=== PATIENT | male | born 1965 | race Caucasian/White ===

== ENCOUNTER 2020-10-15 10:19 | Emergency (ER) | payer SELFPAY ==
[~2020-10-15] VITALS: Ht 182.9 cm; Wt 99.8 kg
[2020-10-15] MEDS ORDERED: Norco 5-325 Ta1 EACH PO (11:37)
== END 2020-10-15 11:45 | disposition home or self-care (01) ==
LOC: ER 10:19
DX: M25.552 Pain in left hip (principal)
CPT/HCPCS: 73502; 99283-25

== ENCOUNTER 2020-11-01 05:53 | Emergency (ER) | payer SELFPAY ==
[~2020-11-01] VITALS: Ht 182.9 cm; Wt 99.8 kg
[~2020-11-01 05:53] MED LIST: Norco 5-325 Ta1 EACH PO
[2020-11-01] MEDS ORDERED: Norco 5-325 Ta1 EACH PO (07:52)
== END 2020-11-01 08:14 | disposition home or self-care (01) ==
LOC: ER 05:53
DX: M25.461 Effusion, right knee (principal)
CPT/HCPCS: 73562-RT; 99283-25

== ENCOUNTER → 2021-02-15 | Outpatient (CLI) | payer SELFPAY ==
[2021-02-15 13:24] LABS: BASOPHILS ABSOLUTE AUTO 0.06 K/mm3 (0.00-0.23); BASOPHILS PERCENT AUTO 1 % (0-2); EOSINOPHILS ABSOLUTE AUTO 0.55 K/mm3 (0.00-0.68); EOSINOPHILS PERCENT AUTO 9 % (0-6); Hematocrit 42.3 % (37.0-53.0); IMMATURE GRAN ABSOLUTE AUTO 0.01 K/mm3 (0.00-0.10); IMMATURE GRAN PERCENT AUTO 0 % (0-1); LYMPHOCYTES ABSOLUTE AUTO 1.79 K/mm3 (0.84-5.20); LYMPHOCYTES PERCENT AUTO 30 % (21-46); MONOCYTES PERCENT AUTO 7 % (4-13); Mean Corpuscular HGB 30.3 pg (26.0-34.0); Mean Corpuscular HGB Conc 33.1 g/dL (31.5-36.5); Mean Corpuscular Volume 92 fL (80-100); Mean Platelet Volume 9.1 fL (9.1-12.4); NEUTROPHILS ABSOLUTE AUTO 3.07 K/mm3 (1.96-9.15); NEUTROPHILS PERCENT AUTO 52 % (41-73); Platelet Count 263 K/mm3 (150-400); RDW Coefficient Variation 13.9 % (11.7-14.2); RDW Standard Deviation 46.6 fL (35.1-46.3); Red Blood Cell Count 4.62 M/mm3 (4.30-5.90); White Blood Cell Count 5.88 K/mm3 (4.00-11.30)
[2021-02-15 13:40] LABS: Alanine Aminotransfer (ALT/SGP 65 U/L (12-78); Albumin, Blood 3.4 g/dL (3.4-5.0); Alk Phos 123 U/L (50-136); Anion Gap 5 mmol/L (6-16); Aspartate Aminotrans (AST/SGOT 137 U/L (12-37); Bilirubin, Total 0.8 mg/dL (0.1-1.0); Blood Urea Nitrogen 12 mg/dL (8-24); Bun/Creatinine Ratio 15.9 (12.0-20.0); CO2, Blood 29 mmol/L (21-32); Calcium, Blood 8.6 mg/dL (8.5-10.1); Chloride, Blood 103 mmol/L (98-108); Creatinine, Blood 0.76 mg/dL (0.60-1.20); Globulin, Blood 3.3 g/dL (2.2-4.0); Glomerular Filtration Rate >60 (60-); Glucose, Blood 86 mg/dL (70-99); Potassium, Blood 4.2 mmol/L (3.5-5.5); Prostate Specific Antigen 0.391 ng/mL (0.000-4.000); Sodium, Blood 137 mmol/L (136-145); Total Protein, Blood 6.7 g/dL (6.4-8.2)
[2021-02-15 14:09] LABS: C-REACTIVE PROTEIN, EXT RANGE 0.627 mg/dL (0.000-0.300); Very Low Density Lipoprot Chol 14 mg/dL (6-32)
[2021-02-15 14:11] LABS: CHOL/HDL RATIO 4.1; Cholesterol 155 mg/dL (50-200); HDL Cholesterol 38 mg/dL (>39); LDL/HDL RATIO 2.7; Low Density Lipoprotein Chol 103 mg/dL (0-110); Triglycerides 70 mg/dL (30-160)
== END | disposition home or self-care (01) ==
LOC: LAB SHORT 07:12
PROVIDERS: Nurse Practitioner Family
DX: Z00.00 Encounter for general adult medical examination without abnormal findings (principal); Z12.5 Encounter for screening for malignant neoplasm of prostate; M15.9 Polyosteoarthritis, unspecified
CPT/HCPCS: 36415; 80053; 80061; 84443; 85025; 85651; 86038; 86140; G0103

== ENCOUNTER 2021-07-25 06:22 | Day surgery (SDC) | payer BC ==
[~2021-07-25] VITALS: Ht 182.9 cm; Wt 100.2 kg
[2021-07-25] MEDS ORDERED: OMEP20ER PO (07:24)
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
== END 2021-07-25 10:28 | disposition home or self-care (01) ==
LOC: ORSCSDS 06:22
PROVIDERS: Orthopaedic Surgery
PROC: 0RBK4ZZ Excision of Left Shoulder Joint, Percutaneous Endoscopic Approach (ICD-10-PCS; principal; 2021-07-25 07:30)
PROC: 0RNK4ZZ Release Left Shoulder Joint, Percutaneous Endoscopic Approach (ICD-10-PCS; principal; 2021-07-25 07:30)
PROC: 0LM24ZZ Reattachment of Left Shoulder Tendon, Percutaneous Endoscopic Approach (ICD-10-PCS; principal; 2021-07-25 07:30)
DX: M75.112 Incomplete rotator cuff tear or rupture of left shoulder, not specified as traumatic (principal); M19.012 Primary osteoarthritis, left shoulder; M75.42 Impingement syndrome of left shoulder; S43.432A Superior glenoid labrum lesion of left shoulder, initial encounter; Z87.891 Personal history of nicotine dependence; K21.9 Gastro-esophageal reflux disease without esophagitis; Z79.899 Other long term (current) drug therapy
CPT/HCPCS: C1713; J0171; J1100; J1885; J2250; J2405; J2704; J3010; J3370; J7050; J7120

== ENCOUNTER 2022-11-10 12:14 | Emergency (ER) | payer SELFPAY ==
[~2022-11-10] VITALS: Ht 180.3 cm; Wt 83.9 kg
[~2022-11-10 12:14] MED LIST changes: +OMEP20ER PO
[2022-11-10] MEDS ORDERED: LIDO700A20 TOP (15:20)
[2022-11-10] MEDS ORDERED: ACET500 PO (15:20)
[2022-11-10 15:35] VITALS: BP 159/88
[2022-11-10] MEDS ORDERED: Robaxin750 MG PO (15:36)
== END 2022-11-10 15:37 | disposition home or self-care (01) ==
LOC: ER 12:14
DX: S16.1XXA Strain of muscle, fascia and tendon at neck level, initial encounter (principal); Z88.0 Allergy status to penicillin; X50.1XXA Overexertion from prolonged static or awkward postures, initial encounter
CPT/HCPCS: 72125; 96372; 99283-25; J1885

== ENCOUNTER 2023-08-03 14:06 | Emergency (ER) | payer SELFPAY ==
[~2023-08-03] VITALS: Ht 180.3 cm; Wt 97.5 kg
[~2023-08-03 14:06] MED LIST changes: +ACET500 PO; +LIDO700A20 TOP; +Robaxin750 MG PO
[2023-08-03 15:02] LABS: BASOPHILS ABSOLUTE AUTO 0.04 K/mm3 (0.00-0.23); BASOPHILS PERCENT AUTO 1 % (0-2); EOSINOPHILS ABSOLUTE AUTO 0.14 K/mm3 (0.00-0.68); EOSINOPHILS PERCENT AUTO 4 % (0-6); Hematocrit 30.7 % (37.0-53.0); Hemoglobin 9.1 g/dL (13.5-17.5); IMMATURE GRAN ABSOLUTE AUTO 0.01 K/mm3 (0.00-0.10); IMMATURE GRAN PERCENT AUTO 0 % (0-1); LYMPHOCYTES ABSOLUTE AUTO 1.12 K/mm3 (0.84-5.20); LYMPHOCYTES PERCENT AUTO 31 % (21-46); MONOCYTES ABSOLUTE AUTO 0.29 K/mm3 (0.16-1.47); MONOCYTES PERCENT AUTO 8 % (4-13); Mean Corpuscular HGB 23.5 pg (26.0-34.0); Mean Corpuscular HGB Conc 29.6 g/dL (31.5-36.5); Mean Corpuscular Volume 79 fL (80-100); Mean Platelet Volume 9.5 fL (9.1-12.4); NEUTROPHILS ABSOLUTE AUTO 2.07 K/mm3 (1.96-9.15); NEUTROPHILS PERCENT AUTO 56 % (41-73); Platelet Count 291 K/mm3 (150-400); RDW Coefficient Variation 16.2 % (11.7-14.2); RDW Standard Deviation 46.4 fL (35.1-46.3); Red Blood Cell Count 3.87 M/mm3 (4.30-5.90); White Blood Cell Count 3.67 K/mm3 (4.00-11.30)
[2023-08-03 15:21] LABS: Albumin, Blood 3.9 g/dL (3.4-5.0); Albumin/Globulin Ratio 1.4 (0.8-1.8); Bilirubin, Total 0.6 mg/dL (0.1-1.0); Bun/Creatinine Ratio 13.2 (12.0-20.0); Calcium, Blood 8.9 mg/dL (8.5-10.1); Creatinine, Blood 0.91 mg/dL (0.60-1.20); Globulin, Blood 2.8 g/dL (2.2-4.0); Potassium, Blood 4.3 mmol/L (3.5-5.5); Total Protein, Blood 6.7 g/dL (6.4-8.2)
[2023-08-03 15:29] LABS: Influenza A, PCR NEGATIVE (NEGATIVE); Influenza B, PCR NEGATIVE (NEGATIVE); Resp Syncytial Virus, PCR NEGATIVE (NEGATIVE); SARS-Cov-2 (COVID-19) PCR, MMC NEGATIVE (NEGATIVE)
[2023-08-03 16:13] LABS: Percent Saturation 4.3 % (20.0-50.0)
[2023-08-03] MEDS ORDERED: Ketorolac Tromethamine 30mg Vial IV ONE (16:50)
[2023-08-03 17:00] VITALS: BP 172/99
[2023-08-03] MEDS ORDERED: FERSU300 PO (17:56)
[2023-08-03] MEDS ORDERED: AMLO5 PO (17:56)
== END 2023-08-03 18:09 | disposition home or self-care (01) ==
LOC: ER 14:06
PROVIDERS: Student in an Organized Health Care Education/Training Program
DX: D50.9 Iron deficiency anemia, unspecified (principal); D72.819 Decreased white blood cell count, unspecified; Z88.0 Allergy status to penicillin; Z79.899 Other long term (current) drug therapy; Z87.891 Personal history of nicotine dependence
CPT/HCPCS: 0241U; 71046; 74177; 80053; 82607; 82728; 82746; 83540; 83550; 83880; 84484; 85025; 93005; 93010; 96374-59; 99285-25; J1885; Q9967

== ENCOUNTER 2023-12-11 09:25 | Emergency (ER) | payer BC ==
[~2023-12-11] VITALS: Ht 180.3 cm; Wt 103.0 kg
[~2023-12-11 09:25] MED LIST changes: +AMLO5 PO; +FERSU300 PO; +LOSARTAN POTAS100 M1 PO; +WARF5 PO
[2023-12-11] MEDS ORDERED: Morphine Sulfate 4 MG/1 ML Injection IV ONE (10:00)
[2023-12-11] MEDS ORDERED: Ondansetron HCl 2 MG / ML 2ML Vial IV ONE (10:00)
[2023-12-11] MEDS ORDERED: NS 1,000 ML IV SCH (10:00)
[2023-12-11 10:32] LABS: Source, Urine Clean Catch
[2023-12-11 10:41] LABS: BASOPHILS ABSOLUTE AUTO 0.04 K/mm3 (0.00-0.23); BASOPHILS PERCENT AUTO 1 % (0-2); EOSINOPHILS ABSOLUTE AUTO 0.17 K/mm3 (0.00-0.68); EOSINOPHILS PERCENT AUTO 5 % (0-6); Hematocrit 30.6 % (37.0-53.0); IMMATURE GRAN ABSOLUTE AUTO 0.01 K/mm3 (0.00-0.10); IMMATURE GRAN PERCENT AUTO 0 % (0-1); LYMPHOCYTES ABSOLUTE AUTO 0.75 K/mm3 (0.84-5.20); LYMPHOCYTES PERCENT AUTO 21 % (21-46); MONOCYTES ABSOLUTE AUTO 0.22 K/mm3 (0.16-1.47); MONOCYTES PERCENT AUTO 6 % (4-13); Mean Corpuscular HGB Conc 29.4 g/dL (31.5-36.5); Mean Corpuscular Volume 85 fL (80-100); Mean Platelet Volume 9.9 fL (9.1-12.4); NEUTROPHILS ABSOLUTE AUTO 2.42 K/mm3 (1.96-9.15); NEUTROPHILS PERCENT AUTO 67 % (41-73); Platelet Count 279 K/mm3 (150-400); RDW Coefficient Variation 16.8 % (11.7-14.2); RDW Standard Deviation 51.8 fL (35.1-46.3); White Blood Cell Count 3.61 K/mm3 (4.00-11.30)
[2023-12-11 10:43] LABS: Bilirubin, Urine Neg (Neg); Blood, Urine Neg (Neg); Color, Urine Yellow (P-Yellow); Glucose Qualitative, Urine Neg (Neg); Ketones, Urine Neg (Neg); Leukocyte Esterase, Urine Neg (Neg); Nitrite, Urine Neg (Neg); Protein, Urine Neg (Neg); Urobilinogen, Urine NORM (Normal)
[2023-12-11 10:44] LABS: Appearance, Urine Clear (Clear)
[2023-12-11 10:56] LABS: Albumin, Blood 3.6 g/dL (3.4-5.0); Albumin/Globulin Ratio 1.2 (0.8-1.8); Bilirubin, Total 0.6 mg/dL (0.1-1.0); Bun/Creatinine Ratio 18.2 (12.0-20.0); Calcium, Blood 8.2 mg/dL (8.5-10.1); Creatinine, Blood 0.82 mg/dL (0.60-1.20); Potassium, Blood 4.1 mmol/L (3.5-5.5); Total Protein, Blood 6.6 g/dL (6.4-8.2)
[2023-12-11 11:00] LABS: International Normalized Ratio 1.1; Prothrombin Time Results 11.7 Sec (9.7-11.5)
[2023-12-11] MEDS ORDERED: DOCU100 PO (12:22)
[2023-12-11] MEDS ORDERED: ONDA4ODT MM (12:22)
[2023-12-11 13:11] VITALS: BP 171/89
== END 2023-12-11 13:11 | disposition home or self-care (01) ==
LOC: ER 09:25
PROVIDERS: Student in an Organized Health Care Education/Training Program
DX: K40.90 Unilateral inguinal hernia, without obstruction or gangrene, not specified as recurrent (principal); K59.00 Constipation, unspecified; Z79.01 Long term (current) use of anticoagulants; Z87.891 Personal history of nicotine dependence; K21.9 Gastro-esophageal reflux disease without esophagitis; I10 Essential (primary) hypertension; E78.5 Hyperlipidemia, unspecified; Z79.899 Other long term (current) drug therapy; Z88.0 Allergy status to penicillin
CPT/HCPCS: 74177; 80053; 81003; 83605; 85025; 85610; 85730; 96361; 96374-59; 96375; 99284-25; J2270; J2405; J7030; Q9967

== ENCOUNTER 2023-12-23 14:42 | Observation (INO) | payer BC ==
[~2023-12-23] VITALS: Ht 182.9 cm; Wt 102.2 kg
[~2023-12-23 14:42] MED LIST changes: +DOCU100 PO; +ONDA4ODT MM
[2023-12-23] MEDS ORDERED: Ketorolac Tromethamine 30mg Vial IV ONE (15:15)
[2023-12-23 15:56] LABS: BASOPHILS ABSOLUTE AUTO 0.04 K/mm3 (0.00-0.23); BASOPHILS PERCENT AUTO 1 % (0-2); EOSINOPHILS ABSOLUTE AUTO 0.27 K/mm3 (0.00-0.68); EOSINOPHILS PERCENT AUTO 6 % (0-6); Hematocrit 28.9 % (37.0-53.0); Hemoglobin 8.8 g/dL (13.5-17.5); IMMATURE GRAN ABSOLUTE AUTO 0.01 K/mm3 (0.00-0.10); IMMATURE GRAN PERCENT AUTO 0 % (0-1); LYMPHOCYTES ABSOLUTE AUTO 1.22 K/mm3 (0.84-5.20); LYMPHOCYTES PERCENT AUTO 29 % (21-46); MONOCYTES ABSOLUTE AUTO 0.41 K/mm3 (0.16-1.47); MONOCYTES PERCENT AUTO 10 % (4-13); Mean Corpuscular HGB 25.3 pg (26.0-34.0); Mean Corpuscular HGB Conc 30.4 g/dL (31.5-36.5); Mean Corpuscular Volume 83 fL (80-100); Mean Platelet Volume 10.1 fL (9.1-12.4); NEUTROPHILS ABSOLUTE AUTO 2.28 K/mm3 (1.96-9.15); NEUTROPHILS PERCENT AUTO 54 % (41-73); Platelet Count 282 K/mm3 (150-400); RDW Coefficient Variation 16.7 % (11.7-14.2); RDW Standard Deviation 48.7 fL (35.1-46.3); Red Blood Cell Count 3.48 M/mm3 (4.30-5.90); White Blood Cell Count 4.23 K/mm3 (4.00-11.30)
[2023-12-23 16:27] LABS: Albumin, Blood 3.9 g/dL (3.4-5.0); Albumin/Globulin Ratio 1.3 (0.8-1.8); Bilirubin, Total 0.8 mg/dL (0.1-1.0); Bun/Creatinine Ratio 16.1 (12.0-20.0); Calcium, Blood 8.8 mg/dL (8.5-10.1); Creatinine, Blood 0.81 mg/dL (0.60-1.20); Globulin, Blood 2.9 g/dL (2.2-4.0); Total Protein, Blood 6.8 g/dL (6.4-8.2)
[2023-12-23] MEDS ORDERED: Ondansetron HCl 2 MG / ML 2ML Vial IV ONE (17:40)
[2023-12-23] MEDS ORDERED: Morphine Sulfate 4 MG/1 ML Injection IV ONE (17:40)
[2023-12-23] MEDS ORDERED: OMEP20ER PO (18:03)
[2023-12-23] MEDS ORDERED: OLMESARTAN MEDO40 MG PO (18:03)
[2023-12-23] MEDS ORDERED: Aspir 8181 MG PO (18:04)
[2023-12-23] MEDS ORDERED: Morphine Sulfate 4 MG/1 ML Injection IV PRN ×2 (20:00→21:15)
[2023-12-23] MEDS ORDERED: Ondansetron HCl 2 MG / ML 2ML Vial IV PRN (20:00)
[2023-12-23 21:04] VITALS: BP 135/69
[2023-12-23] MEDS ORDERED: NS 1,000 ML IV SCH (21:15)
[2023-12-23] MEDS ORDERED: Cyclobenzaprine HCl 10 MG Tab PO ONE (23:20)
[2023-12-24] VITALS (14 sets, daily range): BP systolic 112–142; BP diastolic 51–90
--- NOTE | 2023-12-24 04:20 | NUR ---
SHIFT SUMMARY PT ARRIVED TO UNIT AT 2100 FROM ER, ADMITTED FOR R INGUINAL HERNIA W/ PLAN FOR SURGERY IN AM. PT NPO SINCE 0000. IND IN ROOM, VOIDING IN URINAL. VSS. PAIN MANAGED W/ IV PAIN MEDS W/ TOLERABLE RESULTS. PT COMPLAINED OF LEG CRAMPS, NOTIFIED DR. DÍAZ AND RECIEVED ORDER FOR FLEXERIL. PT ABLE TO REST AFTER. USING CALL LIGHT APPROPRIATELY. CONT BIOX IN PLACE. IV FLUIDS RUNNING ORDERED.
[2023-12-24] MEDS ORDERED: Omeprazole 20 MG CapCR PO SCH (07:30)
[2023-12-24] MEDS ORDERED: Midazolam HCl 1MG / ML 2ML Vial IV PRN (09:00)
[2023-12-24] MEDS ORDERED: Losartan Potassium 50 MG Tab PO SCH (09:00)
[2023-12-24] MEDS ORDERED: OxyCODONE HCL 5 MG TAB PO PRN (09:00)
[2023-12-24] MEDS ORDERED: Lidocaine HCl 1% 5 ML SYR INJ ONE (09:00)
[2023-12-24] MEDS ORDERED: Aspirin 81 MG TabEC PO SCH (09:00)
[2023-12-24 09:04] LABS: International Normalized Ratio 0.99; Prothrombin Time Results 10.6 Sec (9.7-11.5)
[2023-12-24] MEDS ORDERED: Dexamethasone Sod Phos 10 MG/ML 1ML VIAL ONE (09:39)
[2023-12-24] MEDS ORDERED: Sugammadex Sodium 200 MG/2ML SDV (100 MG/ML) ONE (09:39)
[2023-12-24] MEDS ORDERED: propofoL 20 ML IV ONE (09:39)
[2023-12-24] MEDS ORDERED: Ondansetron HCl 2 MG / ML 2ML Vial ONE (09:39)
[2023-12-24] MEDS ORDERED: Ketorolac Tromethamine 30mg Vial ONE (09:39)
[2023-12-24] MEDS ORDERED: FentaNYL Citrate 50 MCG/ML 2 ML Injection ONE ×2 (09:39→14:04)
[2023-12-24] MEDS ORDERED: Rocuronium Bromide 10 MG/ML 5ML Injection IV ONE (09:39)
[2023-12-24] MEDS ORDERED: Lactated Ringer's 1,000 ML IV SCH (11:35)
[2023-12-24] MEDS ORDERED: Bupivacaine 0.5% HCl 5 MG/ML 30MLVIAL ONE (12:06)
[2023-12-24 13:57] LABS: Percent Saturation 9.3 % (20.0-50.0)
--- NOTE | 2023-12-24 15:38 | NUR ---
POST-OP PATIENT RETURNS TO THE FLOOR APPROX 1440, POST-OP VITALS STABLE, AOX4, X3 LAP SITES WITH EXOFEN C/D/I. PATIENT IS TOLERATING PO INTAKE AND VOIDS EASILY. HOSPITALIST IN ROOM TO ASSESS FOR DC HOME. PATIENT STATES DESIRE TO GO HOME TONIGHT.
--- NOTE | 2023-12-24 16:49 | NUR ---
discharged patient is discharged with instructions and pain medication esigned to pharmacy. iv taken out, patient leaves via private car.
== END 2023-12-24 16:43 | disposition home or self-care (01) ==
LOC: ER 14:42 → SURS 14:43 → MEDS 19:40 → ER 19:40 → MEDS 19:40 → SURS 21:00
PROVIDERS: Family Medicine; Physician Assistant; Surgery; ADMIT Hospitalist
PROC: 0YU54JZ Supplement Right Inguinal Region with Synthetic Substitute, Percutaneous Endoscopic Approach (ICD-10-PCS; principal; 2023-12-24 12:00)
PROC: 8E0W4CZ Robotic Assisted Procedure of Trunk Region, Percutaneous Endoscopic Approach (ICD-10-PCS; principal; 2023-12-24 12:00)
DX: K40.90 Unilateral inguinal hernia, without obstruction or gangrene, not specified as recurrent (principal); D17.6 Benign lipomatous neoplasm of spermatic cord; I10 Essential (primary) hypertension; D50.9 Iron deficiency anemia, unspecified; Z87.891 Personal history of nicotine dependence; Z88.0 Allergy status to penicillin; Z79.82 Long term (current) use of aspirin; Z79.899 Other long term (current) drug therapy
CPT/HCPCS: 36415; 76857; 80053; 82728; 83540; 83550; 85025; 85610; 93306; 96374; 96375; 96376; 99284-25; A9270; C1781; G0378; J1100; J1885; J2250; J2270; J2405; J2704; J3010; J7030; J7120

== ENCOUNTER 2024-01-13 01:11 | Observation (INO) | payer BC ==
[~2024-01-13] VITALS: Ht 180.3 cm; Wt 101.7 kg
[~2024-01-13 01:11] MED LIST changes: +Aspir 8181 MG PO; +OLMESARTAN MEDO40 MG PO
[2024-01-13 01:25] LABS: Calcium, Ionized (POC) 1.14 mmol/L (1.10-1.46); Chloride (POC) 104 mmol/L (98-108); Creatinine (POC) 0.8 mg/dL (0.8-1.3); Glucose (ISTAT POC) 107 mg/dL (70-99); Hemoglobin (POC) 9.5 g/dL (13.5-17.5); Sodium (POC) 138 mmol/L (135-148); Total CO2 (POC) 23 mmol/L (21-32)
[2024-01-13 01:29] LABS: BASOPHILS ABSOLUTE AUTO 0.05 K/mm3 (0.00-0.23); BASOPHILS PERCENT AUTO 1 % (0-2); EOSINOPHILS ABSOLUTE AUTO 0.31 K/mm3 (0.00-0.68); EOSINOPHILS PERCENT AUTO 6 % (0-6); Hematocrit 27.8 % (37.0-53.0); Hemoglobin 8.3 g/dL (13.5-17.5); IMMATURE GRAN ABSOLUTE AUTO 0.01 K/mm3 (0.00-0.10); IMMATURE GRAN PERCENT AUTO 0 % (0-1); LYMPHOCYTES ABSOLUTE AUTO 1.65 K/mm3 (0.84-5.20); LYMPHOCYTES PERCENT AUTO 34 % (21-46); MONOCYTES PERCENT AUTO 8 % (4-13); Mean Corpuscular HGB 24.9 pg (26.0-34.0); Mean Corpuscular HGB Conc 29.9 g/dL (31.5-36.5); Mean Corpuscular Volume 83 fL (80-100); Mean Platelet Volume 8.8 fL (9.1-12.4); NEUTROPHILS ABSOLUTE AUTO 2.44 K/mm3 (1.96-9.15); NEUTROPHILS PERCENT AUTO 50 % (41-73); Platelet Count 342 K/mm3 (150-400); RDW Coefficient Variation 17.6 % (11.7-14.2); Red Blood Cell Count 3.34 M/mm3 (4.30-5.90); White Blood Cell Count 4.86 K/mm3 (4.00-11.30)
[2024-01-13] MEDS ORDERED: FentaNYL Citrate 50 MCG/ML 2 ML Injection IV ONE (01:40)
[2024-01-13 01:48] LABS: Albumin, Blood 3.8 g/dL (3.4-5.0); Albumin/Globulin Ratio 1.2 (0.8-1.8); Bun/Creatinine Ratio 12.3 (12.0-20.0); Calcium, Blood 8.7 mg/dL (8.5-10.1); Creatinine, Blood 0.81 mg/dL (0.60-1.20); Globulin, Blood 3.1 g/dL (2.2-4.0); Potassium, Blood 4.1 mmol/L (3.5-5.5); Total Protein, Blood 6.9 g/dL (6.4-8.2)
[2024-01-13] MEDS ORDERED: Morphine Sulfate 4 MG/1 ML Injection IV ONE (04:00)
[2024-01-13] MEDS ORDERED: Morphine Sulfate IR 15 MG Tab PO PRN (05:10)
[2024-01-13] MEDS ORDERED: NS 1,000 ML IV SCH (05:10)
[2024-01-13] MEDS ORDERED: FLU VACC TS2024-25(6MOS UP)/PF 45 MCG/0.5 ML SYRINGE IM SCH (05:10)
[2024-01-13] MEDS ORDERED: NS 1,000 ML IV ONE (05:24)
[2024-01-13] MEDS ORDERED: Mag Hydrox/AL Hydrox/Simeth 30 ML UDC PO PRN (07:25)
[2024-01-13] MEDS ORDERED: Pantoprazole Sodium 40 MG Injection IV SCH (08:00)
[2024-01-13] MEDS ORDERED: Regadenoson 0.4 MG/5 ML SYRINGE ONE (11:42)
[2024-01-13] MEDS ORDERED: Caffeine Citrated 60 MG/3 ML Vial ONE (11:42)
[2024-01-13 14:00] VITALS: BP 113/69
--- NOTE | 2024-01-13 15:14 | NUR ---
ADMISSION: PT ALERT AND ORIENTED X4, ABLE TO FOLLOW COMMANDS AND MAKE NEEDS KNOWN. STRENGTH EQUAL BILATERALLY. BP STABLE. HR SB 68. AFEBRILE SPO2 >96% ON ROOM AIR. RESPIRATIONS EVEN AND UNLABORED. PULSES STRONG AND EQUAL THROUGHOUT. ABD SOFT, NON TENDER, BOWEL SOUNDS +. PT WITH 6/10 CHEST PAIN, MEDICATED PER EMAR. STRESS TEST COMPLETED DOWN IN ER. CARDIOLOGY CONSULTED. PT IND IN ROOM. ABLE TO WALK TO AND FROM BATHROOM. AT BEDSIDE AND UPDATED ON PT PLAN OF CARE. CALL LIGHT IN REACH.
[2024-01-13 16:22] VITALS: BP 116/76
--- NOTE | 2024-01-13 17:37 | NUR ---
DISCHARGE: PT D/C @9317. DISCHARGE INSTRUCTIONS AND EDUCATION PROVIDED. ALL BELONGINGS WITH PT.
[2024-01-14] MEDS ORDERED: Enoxaparin 40 MG/0.4 ML SYR SC SCH (09:00)
== END 2024-01-13 17:48 | disposition home or self-care (01) ==
LOC: ER 01:11 → ERHOLD 01:12 → ER 01:12 → PCU 01:12 → EDBEDREQ 05:47 → PCU 14:15
PROVIDERS: Student in an Organized Health Care Education/Training Program; ADMIT Internal Medicine
DX: I25.110 Atherosclerotic heart disease of native coronary artery with unstable angina pectoris (principal); I10 Essential (primary) hypertension; R16.1 Splenomegaly, not elsewhere classified; D50.9 Iron deficiency anemia, unspecified; E04.1 Nontoxic single thyroid nodule; E78.5 Hyperlipidemia, unspecified; I35.0 Nonrheumatic aortic (valve) stenosis; Z79.82 Long term (current) use of aspirin; Z79.899 Other long term (current) drug therapy; Z87.891 Personal history of nicotine dependence; Z98.84 Bariatric surgery status
CPT/HCPCS: 71045; 71275; 74175; 78452; 80047; 80053; 83880; 84484; 85014; 85025; 93005; 93010; 93017; 96361; 96374-59; 96375-59; 96376; 99285-25; A9270; A9500; G0378; J0706; J2270; J2470; J2785; J3010; J7030; Q9967

== ENCOUNTER 2024-02-16 19:43 | Emergency (ER) | payer BC ==
[~2024-02-16] VITALS: Ht 180.3 cm; Wt 98.9 kg
[2024-02-16 19:52] LABS: Calcium, Ionized (POC) 1.07 mmol/L (1.10-1.46); Chloride (POC) 104 mmol/L (98-108); Creatinine (POC) 1.4 mg/dL (0.8-1.3); Glucose (ISTAT POC) 111 mg/dL (70-99); Hemoglobin (POC) 5.8 g/dL (13.5-17.5); Potassium (POC) 3.8 mmol/L (3.5-5.5); Sodium (POC) 137 mmol/L (135-148); Total CO2 (POC) 22 mmol/L (21-32)
[2024-02-16] MEDS ORDERED: NS 1,000 ML IV SCH (19:55)
[2024-02-16] MEDS ORDERED: Pantoprazole Sodium 40 MG Injection IV ONE (19:55)
[2024-02-16] MEDS ORDERED: Pantoprazole Sodium 40 MG in NS 50 ML IV SCH (19:55)
[2024-02-16] MEDS ORDERED: Ondansetron HCl 2 MG / ML 2ML Vial IV ONE (19:55)
[2024-02-16] MEDS ORDERED: Octreotide Acetate 50 MCG in NS 50 ML IV ONE (19:55)
[2024-02-16] MEDS ORDERED: Vasopressin 20 UNITS in NS 100 ML IV SCH (20:00)
[2024-02-16] MEDS ORDERED: Ciprofloxacin 400MG/D5 200ML 200 ML IV ONE (20:00)
[2024-02-16 20:01] LABS: BASOPHILS ABSOLUTE AUTO 0.05 K/mm3 (0.00-0.23); BASOPHILS PERCENT AUTO 1 % (0-2); EOSINOPHILS ABSOLUTE AUTO 0.19 K/mm3 (0.00-0.68); EOSINOPHILS PERCENT AUTO 2 % (0-6); Hematocrit 19.9 % (37.0-53.0); Hemoglobin 6.4 g/dL (13.5-17.5); IMMATURE GRAN ABSOLUTE AUTO 0.05 K/mm3 (0.00-0.10); IMMATURE GRAN PERCENT AUTO 1 % (0-1); LYMPHOCYTES ABSOLUTE AUTO 2.42 K/mm3 (0.84-5.20); LYMPHOCYTES PERCENT AUTO 22 % (21-46); MONOCYTES ABSOLUTE AUTO 0.83 K/mm3 (0.16-1.47); MONOCYTES PERCENT AUTO 8 % (4-13); Mean Corpuscular HGB 29.9 pg (26.0-34.0); Mean Corpuscular HGB Conc 32.2 g/dL (31.5-36.5); Mean Corpuscular Volume 93 fL (80-100); NEUTROPHILS ABSOLUTE AUTO 7.28 K/mm3 (1.96-9.15); NEUTROPHILS PERCENT AUTO 67 % (41-73); Platelet Count 308 K/mm3 (150-400); RDW Standard Deviation 67.2 fL (35.1-46.3); Red Blood Cell Count 2.14 M/mm3 (4.30-5.90); White Blood Cell Count 10.82 K/mm3 (4.00-11.30)
[2024-02-16 20:18] LABS: Albumin, Blood 2.4 g/dL (3.4-5.0); Albumin/Globulin Ratio 1.1 (0.8-1.8); Bilirubin, Total 0.1 mg/dL (0.1-1.0); Bun/Creatinine Ratio 35.7 (12.0-20.0); Calcium, Blood 7.3 mg/dL (8.5-10.1); Creatinine, Blood 1.26 mg/dL (0.60-1.20); Globulin, Blood 2.1 g/dL (2.2-4.0); Magnesium, Blood 1.8 mg/dL (1.6-2.4); Total Protein, Blood 4.5 g/dL (6.4-8.2)
[2024-02-16 20:21] LABS: Prothrombin Time Results 10.7 Sec (9.7-11.5)
[2024-02-16 20:28] LABS: Chloride (POC) 108 mmol/L (98-108); Creatinine (POC) 1.1 mg/dL (0.8-1.3); Glucose (ISTAT POC) 124 mg/dL (70-99); Hemoglobin (POC) 5.8 g/dL (13.5-17.5); Potassium (POC) 3.7 mmol/L (3.5-5.5); Sodium (POC) 138 mmol/L (135-148); Total CO2 (POC) 17 mmol/L (21-32)
[2024-02-16] MEDS ORDERED: KLOR-CON 1010 ME9 PO (20:38)
[2024-02-16] MEDS ORDERED: ATOR40TA PO (20:38)
[2024-02-16] MEDS ORDERED: CLONIDINE1 EA10 TD (20:38)
[2024-02-16] MEDS ORDERED: ZOLOFT50 MG PO (20:38)
[2024-02-16] MEDS ORDERED: HYDCHL25 PO (20:38)
[2024-02-16] MEDS ORDERED: BUSPIRONE HCL10 M6 PO (20:38)
[2024-02-16] MEDS ORDERED: Calcium Gluconate 10% 100 MG/ML INJ IV ONE (21:25)
[2024-02-16 21:35] LABS: Hematocrit 25.1 % (37.0-53.0); Hemoglobin 8.2 g/dL (13.5-17.5); Mean Platelet Volume 9.1 fL (9.1-12.4); Platelet Count 188 K/mm3 (150-400)
[2024-02-16 21:47] LABS: Magnesium, Blood 1.8 mg/dL (1.6-2.4)
[2024-02-16 22:00] LABS: International Normalized Ratio 1.03
[2024-02-16] MEDS ORDERED: CALCIUM GLUC IN NACL, ISO-OSM 50 ML IV ONE (22:15)
[2024-02-17 00:30] VITALS: BP 106/70
== END 2024-02-17 00:46 | disposition short-term general hospital (02) ==
LOC: ER 19:43
PROVIDERS: Student in an Organized Health Care Education/Training Program
DX: K92.0 Hematemesis (principal); R55 Syncope and collapse; S09.90XA Unspecified injury of head, initial encounter; I95.9 Hypotension, unspecified; D62 Acute posthemorrhagic anemia; E78.5 Hyperlipidemia, unspecified; K21.9 Gastro-esophageal reflux disease without esophagitis; I10 Essential (primary) hypertension; X58.XXXA Exposure to other specified factors, initial encounter; Z87.891 Personal history of nicotine dependence; Z79.82 Long term (current) use of aspirin; Z88.0 Allergy status to penicillin
CPT/HCPCS: 36430; 70450; 71045; 74174; 80047; 80053; 82310; 83605; 83690; 83735; 85014; 85018; 85025; 85049; 85384; 85610; 85730; 86850; 86900; 86901; 86923; 93005; 93010; 96365-59; 96366; 96368; 96375-59; 96376-59; 99291-25; 99292; J0612; J0744; J2354; J2405; J2470; J7030; J7060; P9016; P9059; Q9967

== ENCOUNTER 2024-03-28 11:02 | Day surgery (SDC) | payer BC ==
[~2024-03-28] VITALS: Ht 180.3 cm; Wt 94.8 kg
[~2024-03-28 11:02] MED LIST changes: +ATOR40TA PO; +BUSPIRONE HCL10 M6 PO; +CLONIDINE1 EA10 TD; +HYDCHL25 PO; +KLOR-CON 1010 ME9 PO; +Lactated Ringer's 1,000 ML IV ONE; +ZOLOFT50 MG PO
[2024-03-28] MEDS ORDERED: AMLO5 (12:03)
[2024-03-28] MEDS ORDERED: IRON 65MG (12:09)
[2024-03-28] MEDS ORDERED: MAGCHL64ER (12:10)
[2024-03-28] MEDS ORDERED: SUCR1 (12:11)
[2024-03-28] MEDS ORDERED: [UNRECOGNIZED DRUG - OTHER] (12:11)
[2024-03-28] MEDS ORDERED: ASPI81CH (12:11)
[2024-03-28] MEDS ORDERED: Lactated Ringer's 1,000 ML IV ONE (12:53)
[2024-03-28] MEDS ORDERED: Lidocaine HCl 4% 5 ML SDA ONE (12:54)
[2024-03-28] MEDS ORDERED: propofoL 50 ML IV ONE (13:21)
--- NOTE | 2024-03-28 13:38 | NUR ---
03/28/24 1338 Arlette Ny 4%LIDO 5ML AUTOMIZED GIVEN PER DR. YOST.
[2024-03-28 14:31] VITALS: BP 118/67
== END 2024-03-28 14:25 | disposition home or self-care (01) ==
LOC: ORSCSDS 11:02
PROVIDERS: Internal Medicine Gastroenterology
PROC: 0DB68ZX Excision of Stomach, Via Natural or Artificial Opening Endoscopic, Diagnostic (ICD-10-PCS; principal; 2024-03-28 12:45)
DX: K28.9 Gastrojejunal ulcer, unspecified as acute or chronic, without hemorrhage or perforation (principal); D62 Acute posthemorrhagic anemia; K21.9 Gastro-esophageal reflux disease without esophagitis; G47.33 Obstructive sleep apnea (adult) (pediatric); Z79.82 Long term (current) use of aspirin; Z79.899 Other long term (current) drug therapy; Z87.891 Personal history of nicotine dependence; I10 Essential (primary) hypertension; E78.5 Hyperlipidemia, unspecified; Z98.84 Bariatric surgery status
CPT/HCPCS: 88305; 88342; J2003; J2704; J7120

== ENCOUNTER 2024-05-02 13:08 | Day surgery (SDC) | payer BC ==
[~2024-05-02] VITALS: Ht 182.9 cm; Wt 94.0 kg
[~2024-05-02 13:08] MED LIST changes: +AMLO5; +ASPI81CH; +Atropine Sulfate 0.1 MG/ML 10ML SYR ONE; +Glycopyrrolate 0.2 MG/ML 1MLVIAL ONE; +IRON 65MG; +Lidocaine 2% 5 ML SDV ONE; +Lidocaine HCl/Pf 1% 5 ML VIAL ONE; +MAGCHL64ER; +Methylene Blue 1% 100 MG/10 ML VIAL ONE; +Ondansetron HCl 2 MG / ML 2ML Vial ONE; +SUCR1; +[UNRECOGNIZED DRUG - OTHER]; +ePHEDrine Sulfate 50 MG/ML 1ML Injection ONE
[2024-05-02] MEDS ORDERED: TADA10TA (13:20)
[2024-05-02] MEDS ORDERED: Lactated Ringer's 1,000 ML IV ONE (13:31)
[2024-05-02] MEDS ORDERED: propofoL 50 ML IV ONE (13:47)
[2024-05-02 14:44] VITALS: BP 1118/71
== END 2024-05-02 14:38 | disposition home or self-care (01) ==
LOC: ORSCSDS 13:08
PROVIDERS: Specialist
PROC: 0DJ08ZZ Inspection of Upper Intestinal Tract, Via Natural or Artificial Opening Endoscopic (ICD-10-PCS; principal; 2024-05-02 14:45)
DX: K25.9 Gastric ulcer, unspecified as acute or chronic, without hemorrhage or perforation (principal); Z98.84 Bariatric surgery status; R10.9 Unspecified abdominal pain; E78.5 Hyperlipidemia, unspecified; I10 Essential (primary) hypertension; G47.33 Obstructive sleep apnea (adult) (pediatric); K21.9 Gastro-esophageal reflux disease without esophagitis; Z79.82 Long term (current) use of aspirin; Z79.899 Other long term (current) drug therapy
CPT/HCPCS: J0461; J2003; J2405; J2704; J7120; Q9968

== ENCOUNTER 2024-05-20 06:37 | Emergency (ER) | payer BC ==
[~2024-05-20] VITALS: Ht 180.3 cm; Wt 92.1 kg
[~2024-05-20 06:37] MED LIST changes: -Atropine Sulfate 0.1 MG/ML 10ML SYR ONE; -Glycopyrrolate 0.2 MG/ML 1MLVIAL ONE; -Lactated Ringer's 1,000 ML IV ONE; -Lidocaine 2% 5 ML SDV ONE; -Lidocaine HCl/Pf 1% 5 ML VIAL ONE; -Methylene Blue 1% 100 MG/10 ML VIAL ONE; -Ondansetron HCl 2 MG / ML 2ML Vial ONE; +TADA10TA; -ePHEDrine Sulfate 50 MG/ML 1ML Injection ONE
[2024-05-20 07:17] LABS: BASOPHILS ABSOLUTE AUTO 0.03 K/mm3 (0.00-0.23); BASOPHILS PERCENT AUTO 1 % (0-2); EOSINOPHILS PERCENT AUTO 0 % (0-6); Hematocrit 34.2 % (37.0-53.0); Hemoglobin 11.9 g/dL (13.5-17.5); IMMATURE GRAN ABSOLUTE AUTO 0.02 K/mm3 (0.00-0.10); IMMATURE GRAN PERCENT AUTO 0 % (0-1); LYMPHOCYTES ABSOLUTE AUTO 0.62 K/mm3 (0.84-5.20); LYMPHOCYTES PERCENT AUTO 11 % (21-46); MONOCYTES PERCENT AUTO 7 % (4-13); Mean Corpuscular HGB 32.6 pg (26.0-34.0); Mean Corpuscular HGB Conc 34.8 g/dL (31.5-36.5); Mean Corpuscular Volume 94 fL (80-100); Mean Platelet Volume 9.1 fL (9.1-12.4); NEUTROPHILS PERCENT AUTO 82 % (41-73); Platelet Count 232 K/mm3 (150-400); RDW Coefficient Variation 13.8 % (11.7-14.2); RDW Standard Deviation 46.5 fL (35.1-46.3); Red Blood Cell Count 3.65 M/mm3 (4.30-5.90); White Blood Cell Count 5.77 K/mm3 (4.00-11.30)
[2024-05-20 07:41] LABS: Albumin, Blood 3.3 g/dL (3.4-5.0); Bilirubin, Total 0.9 mg/dL (0.1-1.0); Bun/Creatinine Ratio 16.6 (12.0-20.0); Calcium, Blood 8.5 mg/dL (8.5-10.1); Creatinine, Blood 0.84 mg/dL (0.60-1.20); Globulin, Blood 3.4 g/dL (2.2-4.0); Potassium, Blood 4.1 mmol/L (3.5-5.5); Total Protein, Blood 6.7 g/dL (6.4-8.2)
[2024-05-20] MEDS ORDERED: NS 1,000 ML IV SCH (09:55)
[2024-05-20 12:55] VITALS: BP 112/74
== END 2024-05-20 12:56 | disposition home or self-care (01) ==
LOC: ER 06:37
PROVIDERS: Student in an Organized Health Care Education/Training Program
DX: I95.1 Orthostatic hypotension (principal); I10 Essential (primary) hypertension; E78.5 Hyperlipidemia, unspecified; K21.9 Gastro-esophageal reflux disease without esophagitis; Z88.0 Allergy status to penicillin; Z79.82 Long term (current) use of aspirin; Z79.899 Other long term (current) drug therapy
CPT/HCPCS: 71045; 80053; 85025; 93005; 93010; 96360; 99284-25; J7030

== ENCOUNTER 2024-06-04 13:25 | Day surgery (SDC) | payer BC ==
[~2024-06-04] VITALS: Ht 180.3 cm; Wt 91.9 kg
[~2024-06-04 13:25] MED LIST changes: +Atropine Sulfate 0.1 MG/ML 10ML SYR ONE; +Glycopyrrolate 0.2 MG/ML 1MLVIAL ONE; +Lidocaine 2% 5 ML SDV ONE; +Lidocaine HCl/Pf 1% 5 ML VIAL ONE; +Ondansetron HCl 2 MG / ML 2ML Vial ONE; +ePHEDrine Sulfate 50 MG/ML 1ML Injection ONE
[2024-06-04] MEDS ORDERED: Phenylephrine HCl 10mg/ml 1 ml Vial ONE (15:06)
[2024-06-04] MEDS ORDERED: NS 100 ML IV ONE (15:11)
[2024-06-04] MEDS ORDERED: propofoL 50 ML IV ONE ×2 (15:14→15:37)
[2024-06-04] MEDS ORDERED: Lactated Ringer's 1,000 ML IV ONE (15:20)
[2024-06-04 17:11] VITALS: BP 106/68
== END 2024-06-04 16:52 | disposition home or self-care (01) ==
LOC: ORSCSDS 13:25
PROVIDERS: Internal Medicine Gastroenterology
PROC: 0W3P8ZZ Control Bleeding in Gastrointestinal Tract, Via Natural or Artificial Opening Endoscopic (ICD-10-PCS; principal; 2024-06-04 15:00)
PROC: 0DJD8ZZ Inspection of Lower Intestinal Tract, Via Natural or Artificial Opening Endoscopic (ICD-10-PCS; principal; 2024-06-04 15:00)
DX: K92.2 Gastrointestinal hemorrhage, unspecified (principal); Z98.84 Bariatric surgery status; K57.30 Diverticulosis of large intestine without perforation or abscess without bleeding; D50.0 Iron deficiency anemia secondary to blood loss (chronic); Z79.82 Long term (current) use of aspirin; K21.9 Gastro-esophageal reflux disease without esophagitis; I10 Essential (primary) hypertension; E78.5 Hyperlipidemia, unspecified; G47.33 Obstructive sleep apnea (adult) (pediatric); Z79.899 Other long term (current) drug therapy
CPT/HCPCS: J0461; J2003; J2371; J2405; J2704; J7120

== ENCOUNTER 2024-07-16 22:46 | Emergency (ER) | payer BC ==
[~2024-07-16] VITALS: Ht 175.3 cm; Wt 88.5 kg
[~2024-07-16 22:46] MED LIST changes: -Atropine Sulfate 0.1 MG/ML 10ML SYR ONE; -Glycopyrrolate 0.2 MG/ML 1MLVIAL ONE; -Lidocaine 2% 5 ML SDV ONE; -Lidocaine HCl/Pf 1% 5 ML VIAL ONE; -Ondansetron HCl 2 MG / ML 2ML Vial ONE; -ePHEDrine Sulfate 50 MG/ML 1ML Injection ONE
[2024-07-16 23:19] LABS: BASOPHILS ABSOLUTE AUTO 0.02 K/mm3 (0.00-0.23); BASOPHILS PERCENT AUTO 0 % (0-2); EOSINOPHILS ABSOLUTE AUTO 0.01 K/mm3 (0.00-0.68); EOSINOPHILS PERCENT AUTO 0 % (0-6); Hematocrit 24.1 % (37.0-53.0); Hemoglobin 7.8 g/dL (13.5-17.5); IMMATURE GRAN ABSOLUTE AUTO 0.04 K/mm3 (0.00-0.10); IMMATURE GRAN PERCENT AUTO 0 % (0-1); LYMPHOCYTES ABSOLUTE AUTO 0.55 K/mm3 (0.84-5.20); LYMPHOCYTES PERCENT AUTO 6 % (21-46); MONOCYTES ABSOLUTE AUTO 0.42 K/mm3 (0.16-1.47); MONOCYTES PERCENT AUTO 4 % (4-13); Mean Corpuscular HGB 30.1 pg (26.0-34.0); Mean Corpuscular HGB Conc 32.4 g/dL (31.5-36.5); Mean Corpuscular Volume 93 fL (80-100); Mean Platelet Volume 10.6 fL (9.1-12.4); NEUTROPHILS ABSOLUTE AUTO 8.54 K/mm3 (1.96-9.15); NEUTROPHILS PERCENT AUTO 89 % (41-73); Platelet Count 310 K/mm3 (150-400); RDW Coefficient Variation 17.4 % (11.7-14.2); RDW Standard Deviation 59.3 fL (35.1-46.3); Red Blood Cell Count 2.59 M/mm3 (4.30-5.90); White Blood Cell Count 9.58 K/mm3 (4.00-11.30)
[2024-07-16 23:51] LABS: Albumin, Blood 2.6 g/dL (3.4-5.0); Albumin/Globulin Ratio 0.7 (0.8-1.8); Bilirubin, Total 1.1 mg/dL (0.1-1.0); Bun/Creatinine Ratio 18.7 (12.0-20.0); Calcium, Blood 7.7 mg/dL (8.5-10.1); Creatinine, Blood 1.07 mg/dL (0.60-1.20); Globulin, Blood 3.9 g/dL (2.2-4.0); Magnesium, Blood 1.9 mg/dL (1.6-2.4); Phosphorus, Blood 2.9 mg/dL (2.5-4.9); Potassium, Blood 3.8 mmol/L (3.5-5.5); Total Protein, Blood 6.5 g/dL (6.4-8.2)
[2024-07-17 02:44] LABS: Source, Urine Clean Catch
[2024-07-17 03:05] LABS: Bilirubin, Urine Neg (Neg); Blood, Urine 5+ (Neg); Glucose Qualitative, Urine Neg (Neg); Ketones, Urine Neg (Neg); Leukocyte Esterase, Urine Neg (Neg); Nitrite, Urine Neg (Neg); Protein, Urine 1+ (Neg); Urobilinogen, Urine 1+ (Normal)
[2024-07-17] MEDS ORDERED: NS 1,000 ML IV SCH (03:10)
[2024-07-17] MEDS ORDERED: CefTRIAXone Sodium 1,000 MG in NS 50 ML IV ONE (03:15)
[2024-07-17 03:18] LABS: Appearance, Urine Hazy (Clear); Color, Urine Yellow (P-Yellow)
[2024-07-17] MEDS ORDERED: CEFPODOXIME PR200 MG PO (03:18)
[2024-07-17 03:20] LABS: Bacteria Few /hpf; Granular Casts 0-2 /lpf (0); Hyaline Casts 0-2 /lpf (0-2); Squamous Epithelial Cells Mod /hpf (Few); White Blood Cells, Urine 0-2 /hpf (0-5)
[2024-07-17 04:30] VITALS: BP 98/60
== END 2024-07-17 04:44 | disposition home or self-care (01) ==
LOC: ER 22:46
PROVIDERS: Student in an Organized Health Care Education/Training Program
DX: N39.0 Urinary tract infection, site not specified (principal); E87.1 Hypo-osmolality and hyponatremia; E86.0 Dehydration; D64.9 Anemia, unspecified; E27.1 Primary adrenocortical insufficiency; I10 Essential (primary) hypertension; E78.5 Hyperlipidemia, unspecified; K21.9 Gastro-esophageal reflux disease without esophagitis; Z95.2 Presence of prosthetic heart valve; Z87.891 Personal history of nicotine dependence; Z88.0 Allergy status to penicillin; Z79.82 Long term (current) use of aspirin; Z79.899 Other long term (current) drug therapy; Z59.89 Other problems related to housing and economic circumstances
CPT/HCPCS: 51798; 80053; 81001; 83735; 84100; 84484; 85025; 93005; 93010; 96365; 99284-25; J0696; J7030

== ENCOUNTER 2024-07-23 03:35 | Inpatient (IN) | payer BC ==
[~2024-07-23] VITALS: Ht 180.3 cm; Wt 89.0 kg
[~2024-07-23 03:35] MED LIST changes: +CARAFATE1 GM/10 M1 PO; +CEFPODOXIME PR200 MG PO; +FEROSUL325 M1 PO; -IRON 65MG; -MAGCHL64ER; +MAGCHL64ER PO; -SUCR1
[2024-07-23] MEDS ORDERED: Ondansetron HCl 2 MG / ML 2ML Vial IV PRN ×2 (03:50→05:45)
[2024-07-23 03:57] LABS: BASOPHILS ABSOLUTE AUTO 0.02 K/mm3 (0.00-0.23); BASOPHILS PERCENT AUTO 0 % (0-2); EOSINOPHILS ABSOLUTE AUTO 0.02 K/mm3 (0.00-0.68); EOSINOPHILS PERCENT AUTO 0 % (0-6); Hematocrit 29.8 % (37.0-53.0); Hemoglobin 9.3 g/dL (13.5-17.5); IMMATURE GRAN ABSOLUTE AUTO 0.05 K/mm3 (0.00-0.10); IMMATURE GRAN PERCENT AUTO 1 % (0-1); LYMPHOCYTES ABSOLUTE AUTO 1.15 K/mm3 (0.84-5.20); LYMPHOCYTES PERCENT AUTO 14 % (21-46); MONOCYTES ABSOLUTE AUTO 0.62 K/mm3 (0.16-1.47); MONOCYTES PERCENT AUTO 7 % (4-13); Mean Corpuscular HGB 30.5 pg (26.0-34.0); Mean Corpuscular HGB Conc 31.2 g/dL (31.5-36.5); Mean Corpuscular Volume 98 fL (80-100); Mean Platelet Volume 8.9 fL (9.1-12.4); NEUTROPHILS ABSOLUTE AUTO 6.68 K/mm3 (1.96-9.15); NEUTROPHILS PERCENT AUTO 78 % (41-73); Platelet Count 441 K/mm3 (150-400); RDW Coefficient Variation 17.2 % (11.7-14.2); RDW Standard Deviation 60.8 fL (35.1-46.3); Red Blood Cell Count 3.05 M/mm3 (4.30-5.90); White Blood Cell Count 8.54 K/mm3 (4.00-11.30)
[2024-07-23 04:21] LABS: Albumin, Blood 2.8 g/dL (3.4-5.0); Albumin/Globulin Ratio 0.6 (0.8-1.8); Bilirubin, Total 0.8 mg/dL (0.1-1.0); Calcium, Blood 8.4 mg/dL (8.5-10.1); Creatinine, Blood 0.58 mg/dL (0.60-1.20); Globulin, Blood 4.6 g/dL (2.2-4.0); Potassium, Blood 4.1 mmol/L (3.5-5.5); Total Protein, Blood 7.4 g/dL (6.4-8.2)
[2024-07-23] MEDS ORDERED: FentaNYL Citrate 50 MCG/ML 2 ML Injection IV PRN (04:30)
[2024-07-23] MEDS ORDERED: Naloxone HCl 0.4MG / ML 1ML Vial IV PRN (05:45)
[2024-07-23] MEDS ORDERED: Morphine Sulfate 4 MG/1 ML Injection IV PRN (05:45)
[2024-07-23] MEDS ORDERED: Nitroglycerin 0.4 MG SUBL SL PRN (05:50)
[2024-07-23] MEDS ORDERED: Acetaminophen 325 MG TABLET PO PRN (05:50)
[2024-07-23] MEDS ORDERED: NS 1,000 ML IV SCH ×2 (06:00→16:00)
[2024-07-23] MEDS ORDERED: Aspirin 81 MG Chew PO ONE (06:50)
[2024-07-23 07:03] LABS: Anti-Xa UFH, PHA Monitoring <0.10 IU/mL; International Normalized Ratio 1.04; Prothrombin Time Results 11.1 Sec (9.7-11.5)
[2024-07-23] MEDS ORDERED: Sucralfate 1000MG / 10ML UD BTL PO SCH (07:30)
[2024-07-23] MEDS ORDERED: Heparin Sodium,Porcine/0.5 NS 500 ML IV SCH (07:40)
[2024-07-23 08:11] LABS: Sodium, Urine, Random 49 mmol/L (20-110)
[2024-07-23 08:14] LABS: Osmolality, Urine 789 mos/kg (15-1400)
[2024-07-23] MEDS ORDERED: NS 1,000 ML IV ONE ×3 (08:49→14:34)
[2024-07-23] MEDS ORDERED: Docusate Sodium 100 MG Cap PO SCH (09:00)
[2024-07-23] MEDS ORDERED: Atorvastatin 40 MG Tab PO SCH (09:00)
[2024-07-23] MEDS ORDERED: Prednisone10 MG PO (12:36)
[2024-07-23] MEDS ORDERED: KLOR-CON 1010 ME9 PO (12:43)
[2024-07-23 13:21] VITALS: BP 110/74
[2024-07-23] MEDS ORDERED: NiCARdipine HCL 1,000 MCG/5 ML SYR ONE (14:24)
[2024-07-23] MEDS ORDERED: Heparin Sodium 1000 Units/ML 10ML MDV ONE ×2 (14:24→14:34)
[2024-07-23] MEDS ORDERED: Nitroglycerin 2 MG/20 ML BTL ONE (14:24)
[2024-07-23] MEDS ORDERED: NS 250 ML IV ONE (14:24)
[2024-07-23] MEDS ORDERED: Midazolam HCl 1MG / ML 2ML Vial ONE (15:00)
[2024-07-23] MEDS ORDERED: FentaNYL Citrate 50 MCG/ML 2 ML Injection ONE (15:00)
[2024-07-23 16:09] VITALS: BP 116/75
[2024-07-23 16:16] VITALS: BP 116/75
[2024-07-23] MEDS ORDERED: Omeprazole 20 MG CapCR PO SCH (16:30)
[2024-07-23] MEDS ORDERED: Colchicine 0.6 MG TAB PO SCH ×2 (17:41→21:00)
[2024-07-23 19:40] VITALS: BP 151/86
--- NOTE | 2024-07-23 20:01 | NUR ---
SHIFT SUMMARY PATIENT IS AOX4 ABLE TO MAKE NEEDS KNOWN. HE DID HAVE CHEST PAIN THAT WAS RELEIVED BY MORPHINE. HE WENT TO [facility] AND HAD NO INTERVENTIONS. ECHO PERFORMED RESULTS IN CHART. HE STILL HAS CHEST PAIN TREATED BY MORPHINE. HE HAD AN 18 BEAT RUN OF [facility] CARDIOLOGY AND HOSPITALIST AWARE AND THEY SAID TO CALL BACK ONLY IF SYMPTOMATIC. ALL THE AIR WAS REMOVED FROM THE TR BAND WITH NO BLEEDING OR HEMATOMA. REPORT GIVEN TO FORMING PRESS OPERATOR ALL QUESTIONS ANSWERED.
[2024-07-23 23:03] VITALS: BP 102/66
[2024-07-24 03:50] VITALS: BP 118/84
--- NOTE | 2024-07-24 04:02 | NUR ---
SHIT SUMMARY: AOX4, MAKES HIS NEEDS KNOWN TO STAFF. ON TELE, SR HR's >90S, NO ACUTE CHANGES THROUGHOUT SHIFT, STILL HAD CP THROUGHOUT THE NIGHT AND MEDICATED PER EMAR. CP RANGED FROM 3/10 - 9/10 DEPENDING ON MEDICATION ADMINSTRATION TIMES. ANGIOGRAM SITE ON R W IS HEALING WELL, NO INFLAMMATION,ERYTHEMA, BRUISING OR HEMATOMA, BANDAGE REMOVED AND PLACED TEGADERM. ARMBAND STILL IN PLACE, PLAN FOR REMOVAL TOMORROW. EDUCATED FIXED WING PILOT LIGHT USE, BED AT LOWEST HEIGHT, CALL LIGHT WITHIN REACH.
--- NOTE | 2024-07-24 04:20 | NUR ---
REVIEWED [facility] SHRINKER NOTES AND AM IN AGREEMENT.
--- NOTE | 2024-07-24 04:23 | NUR ---
SHIFT SUMMARY: AOX4, MAKES HIS NEEDS KNOWN TO STAFF. ON TELE, SR HR's >90S, NO ACUTE CHANGES THROUGHOUT SHIFT, STILL HAD CP THROUGHOUT THE NIGHT AND MEDICATED PER EMAR. CP RANGED FROM 3/10 - 9/10 DEPENDING ON MEDICATION ADMINSTRATION TIMES. ANGIOGRAM SITE ON R W IS HEALING WELL, NO INFLAMMATION,ERYTHEMA, BRUISING OR HEMATOMA, BANDAGE REMOVED AND PLACED TEGADERM. ARMBAND STILL IN PLACE, PLAN FOR REMOVAL TOMORROW. EDUCATED YEAST WASHER LIGHT USE, BED AT LOWEST HEIGHT, CALL LIGHT WITHIN REACH.
[2024-07-24 04:34] LABS: Hematocrit 23.2 % (37.0-53.0); Hemoglobin 7.3 g/dL (13.5-17.5); Mean Corpuscular HGB 30.3 pg (26.0-34.0); Mean Corpuscular HGB Conc 31.5 g/dL (31.5-36.5); Mean Corpuscular Volume 96 fL (80-100); Mean Platelet Volume 9.3 fL (9.1-12.4); Platelet Count 353 K/mm3 (150-400); RDW Coefficient Variation 17.4 % (11.7-14.2); RDW Standard Deviation 61.6 fL (35.1-46.3); Red Blood Cell Count 2.41 M/mm3 (4.30-5.90); White Blood Cell Count 7.37 K/mm3 (4.00-11.30)
[2024-07-24 05:04] LABS: Calcium, Blood 7.9 mg/dL (8.5-10.1); Creatinine, Blood 0.55 mg/dL (0.60-1.20); Potassium, Blood 4.4 mmol/L (3.5-5.5)
[2024-07-24 08:15] VITALS: BP 137/92
[2024-07-24] MEDS ORDERED: OxyCODONE HCL 5 MG TAB PO PRN ×2 (08:55→12:18)
[2024-07-24] MEDS ORDERED: Aspirin 81 MG TabEC PO SCH (09:00)
[2024-07-24 12:09] VITALS: BP 142/97
[2024-07-24 14:13] LABS: Hematocrit 22.5 % (37.0-53.0); Hemoglobin 7.3 g/dL (13.5-17.5)
--- NOTE | 2024-07-24 14:37 | NUR ---
SHIFT SUMMARY PATIENT AOX4 ABLE TO MAKE NEEDS KNOWN. HE DOES HAVE CHEST PAIN THAT IMPROVES WITH PRN PAIN MEDS. HIS MORPHINE WAS DC'D AND HE WAS STARTED ON OXY WHICH HE SAID DID WORK BUIT NEEDED TO TAKE 2 TABS INSTEAD OF JUST ONE. WITH THE 2 TABS OF OXY HE WAS ABLE TO GET HIS PAIN DOWN TO A 1/10. HIS VITALS ARE STABLE AND HE IS ABLE TO TOLERATE HIS DIET. HIS RIGHT RADIAL CATH SITE IS CDI AND NO PAIN NO BRUISING NO HEMATOMA. HE UNDERSTANDS THE USE RESTRICTION ON THE RIGHT ARM.
[2024-07-24] MEDS ORDERED: ASPIR 8181 M1 PO (14:54)
[2024-07-24] MEDS ORDERED: Colace100 MG PO (14:55)
[2024-07-24] MEDS ORDERED: COLCHICINE0.6 MG PO (14:56)
[2024-07-24] MEDS ORDERED: OXYC5 PO (15:01)
[2024-07-24 15:49] VITALS: BP 136/92
--- NOTE | 2024-07-24 16:05 | NUR ---
DISCHARGE: Pt was given verbal and written discharge instrucitons. Verbalized understanding. IV's discontinued, caths intact. Hard rx for oxycodone and return to work note given to patient. Patient left via w/c with RN. Stable at time of discharge
== END 2024-07-24 16:15 | disposition home or self-care (01) | DRG 281 ==
LOC: ER 03:35 → ERHOLD 05:42 → PCU 05:42
PROVIDERS: Emergency Medicine; Internal Medicine; Internal Medicine Cardiovascular Disease; ADMIT Student in an Organized Health Care Education/Training Program
PROC: B2111ZZ Fluoroscopy of Multiple Coronary Arteries using Low Osmolar Contrast (ICD-10-PCS; principal; 2024-07-23)
DX: I30.9 Acute pericarditis, unspecified (principal); E87.1 Hypo-osmolality and hyponatremia; I21.4 Non-ST elevation (NSTEMI) myocardial infarction; I10 Essential (primary) hypertension; K21.9 Gastro-esophageal reflux disease without esophagitis; R79.1 Abnormal coagulation profile; G47.33 Obstructive sleep apnea (adult) (pediatric); D64.9 Anemia, unspecified; E78.5 Hyperlipidemia, unspecified; I25.10 Atherosclerotic heart disease of native coronary artery without angina pectoris; Z96.653 Presence of artificial knee joint, bilateral; Z95.2 Presence of prosthetic heart valve; Z88.0 Allergy status to penicillin; Z79.82 Long term (current) use of aspirin; Z87.891 Personal history of nicotine dependence; Z79.52 Long term (current) use of systemic steroids; Z98.1 Arthrodesis status
CPT/HCPCS: 36415; 71046; 71260; 76937; 80048; 80053; 83690; 83880; 83930; 83935; 84300; 84484; 85014; 85018; 85025; 85027; 85379; 85520; 85610; 85730; 93005; 93010; 93306; 93454; 94762; 96374-59; 96375-59; 99152; 99153; 99285-25; A9270; C1769; C1887; C1894; J1644; J2250; J2270; J2405; J3010; J7030; J7050; Q9967

== ENCOUNTER 2024-07-30 02:06 | Day surgery (SDC) | payer BC ==
[~2024-07-30 02:06] MED LIST changes: +ASPIR 8181 M1 PO; +COLCHICINE0.6 MG PO; +Colace100 MG PO; +OXYC5 PO; +Prednisone10 MG PO
[2024-07-30] MEDS ORDERED: NS 250 ML IV SCH (07:00)
[2024-07-30 07:34] VITALS: BP 121/74
[2024-07-30] MEDS ORDERED: POTCHL20ER PO (07:44)
[2024-07-30] MEDS ORDERED: PRED5 (07:45)
[2024-07-30 07:59] VITALS: BP 107/71
[2024-07-30 09:00] VITALS: BP 128/79
[2024-07-30 09:19] VITALS: BP 139/77
[2024-07-30 09:41] VITALS: BP 129/78
[2024-07-30 11:10] VITALS: BP 114/75
== END 2024-07-30 11:13 | disposition home or self-care (01) ==
LOC: ATC 02:06
DX: D59.10 Autoimmune hemolytic anemia, unspecified (principal); I10 Essential (primary) hypertension; I25.2 Old myocardial infarction; F17.290 Nicotine dependence, other tobacco product, uncomplicated; F17.210 Nicotine dependence, cigarettes, uncomplicated; Z88.0 Allergy status to penicillin; Z79.899 Other long term (current) drug therapy
CPT/HCPCS: 36430; 86850; 86900; 86901; 86923; J7050; P9016

== ENCOUNTER 2024-08-18 05:58 | Emergency (ER) | payer BC ==
[~2024-08-18] VITALS: Ht 180.3 cm; Wt 83.9 kg
[~2024-08-18 05:58] MED LIST changes: +POTCHL20ER PO; +PRED5
[2024-08-18 06:09] LABS: Calcium, Ionized (POC) 1.12 mmol/L (1.10-1.46); Chloride (POC) 99 mmol/L (98-108); Creatinine (POC) 1.2 mg/dL (0.8-1.3); Glucose (ISTAT POC) 276 mg/dL (70-99); Hemoglobin (POC) 9.9 g/dL (13.5-17.5); Potassium (POC) 5.6 mmol/L (3.5-5.5); Sodium (POC) 129 mmol/L (135-148); Total CO2 (POC) 17 mmol/L (21-32)
[2024-08-18] MEDS ORDERED: EPINEPhrine HCl 0.1 MG/ML 10ML SYR XX ONE (16:25)
[2024-08-18] MEDS ORDERED: Calcium Chloride 10% 10 ML SYR IV ONE (16:25)
== END 2024-08-18 12:11 ==
LOC: ER 05:58
PROVIDERS: Emergency Medicine
DX: I46.9 Cardiac arrest, cause unspecified (principal); I10 Essential (primary) hypertension; E78.5 Hyperlipidemia, unspecified; I25.2 Old myocardial infarction; K21.9 Gastro-esophageal reflux disease without esophagitis; Z95.2 Presence of prosthetic heart valve; Z87.891 Personal history of nicotine dependence; Z91.030 Bee allergy status; Z88.0 Allergy status to penicillin; Z91.018 Allergy to other foods; Z79.82 Long term (current) use of aspirin; Z79.899 Other long term (current) drug therapy
CPT/HCPCS: 80047; 85014; 94002; 99285-25